=== PATIENT | male | born 1955 ===

== ENCOUNTER 2024-02-23 06:10 | Outpatient (CLI) | payer OTHER | END 2024-02-23 23:59 | disposition short-term general hospital (02) | LOC: EMS 06:10 | DX: R41.0 Disorientation, unspecified (principal); R50.9 Fever, unspecified; W18.30XA Fall on same level, unspecified, initial encounter; Y92.003 Bedroom of unspecified non-institutional (private) residence as the place of occurrence of the external cause | CPT/HCPCS: A0425; A0429 ==